=== PATIENT | female | born 1980 | race Caucasian/White ===

== ENCOUNTER 2021-07-31 18:37 | Emergency (ER) | payer SELFPAY ==
[~2021-07-31] VITALS: Ht 162.5 cm; Wt 70.3 kg
[2021-07-31 20:12] LABS: URINE AMPHETAMINES > 1000 (1000ng/ml); URINE BARBITURATES < 200 (200ng/ml); URINE BENZODIAZEPINES < 200 (200ng/ml); URINE CANNABINOIDS (THC) < 50 (50ng/ml); URINE COCAINE < 300 (300ng/ml); URINE METHADONE < 300 (300ng/ml); URINE OPIATES < 300 (300ng/ml)
[2021-07-31 20:14] LABS: URINE PHENCYCLIDINE < 25 (25ng/ml)
== END 2021-07-31 20:34 | disposition home or self-care (01) ==
LOC: ED 18:37
PROVIDERS: Internal Medicine
DX: F41.9 Anxiety disorder, unspecified (principal)